=== PATIENT | male | born 1945 | race Caucasian/White ===

== ENCOUNTER 2017-11-03 11:04 | Emergency (ER) | payer MEDICARE ==
[2017-11-03] MEDS ORDERED: ROSU20TA23 PO (11:19)
[2017-11-03] MEDS ORDERED: ASPI-1471 PO (11:19)
[2017-11-03] MEDS ORDERED: LOSA50TA74 PO (11:19)
[2017-11-03] MEDS ORDERED: FLEC150T14 PO (11:19)
--- NOTE | 2017-11-03 11:40 | ER Report ---
History and Physical Time Seen By MD: 11:30 Hx. of Stated Complaint: HIGH BP, PT DENIES TRISTAN, CP, SOB, N/V, DIZZINESS/LIGHTHEADEDNESS HPI/ROS CHIEF COMPLAINT: Blood pressure check HISTORY OF PRESENT ILLNESS: Patient is a 8-year-old male with past medical history for hypertension and paroxysmal atrial fibrillation. He is here visiting his mother from [place]. States that he checks his blood pressure frequently which is usually in the normal range between 03/10/1928 systolic over 80 diastolic. Over the last few days. His blood pressure has been running in the 160 systolic range. He recently changed his hypertension medications to losartan 50 mg daily. Since that time he's noticed a slight increase in his blood pressure. [place] any other symptoms. Including chest pain, shortness of breath exertional dyspnea, palpitations, headache abdominal pain, blurry vision. REVIEW OF SYSTEMS: Respiratory: No cough, no dyspnea. Cardiovascular: No chest pain, no palpitations. Gastrointestinal: No vomiting, no abdominal pain. Musculoskeletal: No back pain. Allergies: Coded Allergies: Penicillins (Verified Allergy, Unknown, RASH, 11/03/17) tetracycline (Verified Allergy, Unknown, SWELLING, 11/03/17) Home Meds Reported Medications Rosuvastatin Calcium (CRESTOR) 20 Mg Tablet, 20 MG PO QDAY 11/03/17 Losartan Potassium (LOSARTAN POTASSIUM) 50 Mg Tablet, 50 MG PO QDAY 11/03/17 Flecainide Acetate (FLECAINIDE ACETATE) 150 Mg Tablet, 150 MG PO BID 11/03/17 Aspirin (ASPIR 81) 81 Mg Tablet.dr, 81 MG PO QDAY, TAB 11/03/17 Past Medical/Surgical History Past medical history for hypertension, history of paroxysmal atrial fibrillation on flecainide Constitutional Vital Sign - Last 24 Hours 11/03/17 11:11 Temp 98.1 Pulse 73 Resp 12 B/P (MAP) 168/89 Pulse Ox 91 O2 Delivery Room Air Physical Exam General Appearance: The patient is alert, has no immediate need for airway protection and no current signs of toxicity. Eyes: Pupils equal and round no injection. Respiratory: Chest is non tender, lungs are clear to auscultation. Cardiac: regular rate and rhythm Gastrointestinal: Abdomen is soft and non tender, no masses, bowel sounds normal. Musculoskeletal: Neck: Neck is supple and non tender. Extremities have full range of motion and are non tender. Skin: No rashes or lesions. Medical Decision Making Data Points Result Diagram: 11/03/17 1142 11/03/17 1142 Laboratory Hematology Test 11/03/17 11:42 11/03/17 11:45 Red Blood Count 4.75 M/uL (4.00-5.60) Mean Corpuscular Volume 92.1 fL (80.0-96.0) Mean Corpuscular Hemoglobin 31.8 pg (26.0-33.0) Mean Corpuscular Hemoglobin Concent 34.5 g/dL (32.0-36.0) Red Cell Distribution Width 16.2 % (11.5-14.5) Mean Platelet Volume 9.3 fL (7.2-11.1) Neutrophils (%) (Auto) 63.6 % (39.4-72.5) Lymphocytes (%) (Auto) 21.1 % (17.6-49.6) Monocytes (%) (Auto) 10.5 % (4.1-12.4) Eosinophils (%) (Auto) 4.3 % (0.4-6.7) Basophils (%) (Auto) 0.5 % (0.3-1.4) Nucleated RBC Relative Count (auto) 0.0 /100WBC Neutrophils # (Auto) 3.8 K/uL (2.0-7.4) Lymphocytes # (Auto) 1.3 K/uL (1.3-3.6) Monocytes # (Auto) 0.6 K/uL (0.3-1.0) Eosinophils # (Auto) 0.3 K/uL (0.0-0.5) Basophils # (Auto) 0.0 K/uL (0.0-0.1) Nucleated RBC Absolute Count (auto) 0.00 K/uL Sodium Level 140 mmol/L (137-145) Potassium Level 3.2 mmol/L (3.5-5.0) Chloride Level 101 mmol/L (98-107) Carbon Dioxide Level 26 mmol/L (22-30) Blood Urea Nitrogen 15 mg/dl (9-21) Creatinine 0.90 mg/dl (0.66-1.25) Glomerular Filtration Rate Calc > 60.0 Random Glucose 87 mg/dl (75-110) Calcium Level 8.5 mg/dl (8.4-10.2) Total Bilirubin 0.6 mg/dl (0.2-1.3) Aspartate Amino Transf (AST/SGOT) 29 U/L (0-35) Alanine Aminotransferase (ALT/SGPT) 34 U/L (0-56) Alkaline Phosphatase 65 U/L (0-126) Total Protein 6.2 g/dl (6.3-8.2) Albumin 3.5 g/dl (3.5-5.0) Urine Color Yellow Urine Clarity Clear Urine pH 6 pH (4.8-9.5) Urine Specific [place] 1.020 Urine Protein Trace mg/dL (NEGATIVE) Urine Glucose (UA) Negative mg/dL (NEGATIVE) Urine Ketones >=80 mg/dL (NEGATIVE) Urine Blood Negative (NEGATIVE) Urine Nitrite Negative (NEGATIVE) Urine Bilirubin Negative (NEGATIVE) Urine Urobilinogen 0.2 mg/dL (0.2-1.9) Urine Leukocyte Esterase Negative (NEGATIVE) Urine RBC None /HPF (0-2/HPF) Urine WBC None /HPF (0-5/HPF) Urine Squamous Epithelial Cells Rare /LPF (</=FEW) Urine Calcium Oxalate Crystals Few /HPF (NONE) Urine Bacteria Rare /HPF (NONE-FEW) Urine Mucus Few /HPF (NONE-FEW) Chemistry Test 11/03/17 11:42 11/03/17 11:45 White Blood Count 6.0 k/uL (4.5-11.0) Red Blood Count 4.75 M/uL (4.00-5.60) Hemoglobin 15.1 g/dL (14.0-18.0) Hematocrit 43.8 % (42.0-52.0) Mean Corpuscular Volume 92.1 fL (80.0-96.0) Mean Corpuscular Hemoglobin 31.8 pg (26.0-33.0) Mean Corpuscular Hemoglobin Concent 34.5 g/dL (32.0-36.0) Red Cell Distribution Width 16.2 % (11.5-14.5) Platelet Count 158 K/uL (150-450) Mean Platelet Volume 9.3 fL (7.2-11.1) Neutrophils (%) (Auto) 63.6 % (39.4-72.5) Lymphocytes (%) (Auto) 21.1 % (17.6-49.6) Monocytes (%) (Auto) 10.5 % (4.1-12.4) Eosinophils (%) (Auto) 4.3 % (0.4-6.7) Basophils (%) (Auto) 0.5 % (0.3-1.4) Nucleated RBC Relative Count (auto) 0.0 /100WBC Neutrophils # (Auto) 3.8 K/uL (2.0-7.4) Lymphocytes # (Auto) 1.3 K/uL (1.3-3.6) Monocytes # (Auto) 0.6 K/uL (0.3-1.0) Eosinophils # (Auto) 0.3 K/uL (0.0-0.5) Basophils # (Auto) 0.0 K/uL (0.0-0.1) Nucleated RBC Absolute Count (auto) 0.00 K/uL Glomerular Filtration Rate Calc > 60.0 Calcium Level 8.5 mg/dl (8.4-10.2) Total Bilirubin 0.6 mg/dl (0.2-1.3) Aspartate Amino Transf (AST/SGOT) 29 U/L (0-35) Alanine Aminotransferase (ALT/SGPT) 34 U/L (0-56) Alkaline Phosphatase 65 U/L (0-126) Total Protein 6.2 g/dl (6.3-8.2) Albumin 3.5 g/dl (3.5-5.0) Urine Color Yellow Urine Clarity Clear Urine pH 6 pH (4.8-9.5) Urine Specific [place] 1.020 Urine Protein Trace mg/dL (NEGATIVE) Urine Glucose (UA) Negative mg/dL (NEGATIVE) Urine Ketones >=80 mg/dL (NEGATIVE) Urine Blood Negative (NEGATIVE) Urine Nitrite Negative (NEGATIVE) Urine Bilirubin Negative (NEGATIVE) Urine Urobilinogen 0.2 mg/dL (0.2-1.9) Urine Leukocyte Esterase Negative (NEGATIVE) Urine RBC None /HPF (0-2/HPF) Urine WBC None /HPF (0-5/HPF) Urine Squamous Epithelial Cells Rare /LPF (</=FEW) Urine Calcium Oxalate Crystals Few /HPF (NONE) Urine Bacteria Rare /HPF (NONE-FEW) Urine Mucus Few /HPF (NONE-FEW) Urinalysis Test 11/03/17 11:45 Urine Color Yellow Urine Clarity Clear Urine pH 6 pH (4.8-9.5) Urine Specific [place] 1.020 Urine Protein Trace mg/dL (NEGATIVE) Urine Glucose (UA) Negative mg/dL (NEGATIVE) Urine Ketones >=80 mg/dL (NEGATIVE) Urine Blood Negative (NEGATIVE) Urine Nitrite Negative (NEGATIVE) Urine Bilirubin Negative (NEGATIVE) Urine Urobilinogen 0.2 mg/dL (0.2-1.9) Urine Leukocyte Esterase Negative (NEGATIVE) Urine RBC None /HPF (0-2/HPF) Urine WBC None /HPF (0-5/HPF) Urine Squamous Epithelial Cells Rare /LPF (</=FEW) Urine Calcium Oxalate Crystals Few /HPF (NONE) Urine Bacteria Rare /HPF (NONE-FEW) Urine Mucus Few /HPF (NONE-FEW) EKG/Imaging EKG Interpretation EKG shows sinus rhythm with a ventricular rate of 64 bpm with no significant ST segment or T-wave abnormalities Monitor Interpretation: Normal Sinus Rhythm ED Course/Re-evaluation ED Course Plan at this time will be to check EKG, CBC electrolytes urinalysis. Decision to Disposition Date: Nov 03, 2017 Decision to Disposition Time: 12:37 Depart Departure Latest Vital Signs Vital Signs Date Time Temp Pulse Resp B/P (MAP) Pulse Ox O2 Delivery O2 Flow Rate FiO2 11/03/17 11:11 98.1 73 12 168/89 91 Room Air Impression: Primary Impression: Essential hypertension Condition: Improved Disposition: HOME OR SELF-CARE Patient Instructions: Chronic Hypertension (ED) Additional Instructions: Continue all your current medications as prescribed. Call your doctor this Saturday to discuss any changes in blood pressure medications. DANIEL COTE MD Nov 03, 2017 11:40
[2017-11-03 11:53] LABS: PLATELET COUNT, AUTOMATED 158 K/uL (150-450)
--- NOTE | 2017-11-03 12:15 | EKG ---
FACILITY: [facility] PATIENT NAME: AV SEQUEIRA : [id number] MR: [id number]: [id number] EXAM DATE: ORDERING PHYSICIAN: DANIEL COTE TECHNOLOGIST: SAIMA Alejandra Reason : CARDIAC Blood Pressure : / mmHG Vent. Rate : 064 BPM Atrial Rate : 064 BPM P-R Int : 196 ms QRS Dur : 094 ms QT Int : 478 ms P-R-T Axes : 052 003 020 degrees QTc Int : 493 ms Sinus rhythm Borderline left axis Probable left atrial enlargement Prolonged QT Artifact in several leads - repeat if needed Abnormal ECG No previous ECGs available Confirmed by CLARKE MELENDEZ ([id number] on 11/03/2017 3:51:15 PM Referred By: KERA Confirmed By:CLARKE MELENDEZ
[2017-11-03 12:30] VITALS: BP 130/92
== END 2017-11-03 12:45 | disposition home or self-care (01) ==
LOC: ER 11:26
DX: I10 Essential (primary) hypertension (principal)
CPT/HCPCS: 81001; 82040; 82247; 82310; 82374; 82435; 82565; 82947; 84075; 84132; 84155; 84295; 84450; 84460; 84520; 85025; 93005; 99283